=== PATIENT | female | born 1960 | race Caucasian/White ===

== ENCOUNTER 2017-06-09 11:40 | Emergency (ER) | payer MEDICAID, SELFPAY ==
[2017-06-09 11:44] VITALS: BP 159/67; PULSE 79; PULSE 81; RESP 17; RESP 18; TEMP 37.1; O2SAT 98; BMI 32.7
--- NOTE | 2017-06-09 11:59 | RAD_ITS ---
STUDY: X-RAY CHEST REASON FOR EXAM: Female, 57 years old. Chest pain following colonoscopy. Mitral valve prolapse. TECHNIQUE: AP and lateral views of the chest. COMPARISON: Comparison is made with prior study dated February 26, 2014. FINDINGS: EKG electrodes are seen. Scattered calcified granulomas. No acute abnormality is seen. There is no demonstrated pleural abnormality. Normal size heart. Normal mediastinum and yasemin. Normal visualized pulmonary arteries. There is atherosclerotic tortuosity of the aortic arch and descending thoracic aorta. There are diffuse degenerative changes of the visualized thoracic spine. Prior fusion of the cervical spine. There is no demonstrated abnormality of the visualized soft tissue structures of the upper abdomen. RAD/Chest PA and Lateral IMPRESSION: No acute abnormality is seen. Electronically Signed: Felipe Nguyen MD at 13:11 EST Tel [phone], Service support ,
--- NOTE | 2017-06-09 11:59 | EKG12_ITS ---
Test Reason : CP, POSTOP Blood Pressure : / mmHG Vent. Rate : 076 BPM Atrial Rate : 076 BPM P-R Int : 156 ms QRS Dur : 076 ms QT Int : 404 ms P-R-T Axes : 050 -19 027 degrees QTc Int : 454 ms Normal sinus rhythm Normal ECG When compared with ECG of 17-NOV-2016 14:27, No significant change was found Confirmed by NIKITA JIMENES, PATTI ([id number]), proposal editor LUCHO AU ([id number] on 06/11/2017 1:36:42 PM Referred By: BEAR Confirmed By:PATTI SHELTON MD
[2017-06-09 12:45] LABS: Absolute Lymphocyte Count 0.48 X10^3/ul (0.83-4.51); Absolute Neutrophil Count 5.9 X10^3/uL (2.0-7.7); Basophil# 0.01 X10^3/uL; Basophil% 0.1 % (0-1); Eosinophil# 0.11 X10^3/uL; Eosinophils% 1.6 % (0-5); Hematocrit 40.5 % (37-47); Hemoglobin 13.5 g/dl (12.0-15.0); Lymphocyte # 0.48 X10^3/ul (4.0); Mean Corp Hgb Conc 33.3 g/gl (32-36); Mean Corpuscular Hgb 28.8 pg (27.0-32.0); Mean Corpuscular Volume 86.5 fL (81-99); Mean Platelet Vol. 10.7 fl (6.2-12.0); Monocyte# 0.35 X10^3/uL; Monocyte% 5.1 % (0-10); Neutrophil # 5.85 X10^3/uL (2.7-7.7); Neutrophil % 86.1 % (47-70); Platelet Count 145 K/mm3 (150-450); RBC Distribution Width CV 12.7 % (11.6-14.6); RBC Distribution Width SD 39.3 fl (35.1-43.9); Red Blood Count 4.68 M/mm3 (4.2-5.4); White Blood Count 6.8 K/mm3 (4.4-11.0)
[2017-06-09 12:50] LABS: Anion Gap 9 (5-15); BUN 20 mg/dL (7-18); BUN/Creat Ratio 17.2 RATIO (10-20); Chloride 106 mmol/L (98-107); Creatinine, Serum 1.16 mg/dL (0.55-1.02); EST Glomerular Filtration Rate 51 mL/min (>60); Est Glom Filt Rate - Afr Amer 62 mL/min (>60); Estimated Creatinine Clearance 41.81 ml/min; Glucose 95 mg/dL (70-110); Sodium Level 139 mmol/L (136-145)
[2017-06-09 12:52] LABS: Differential Indicated SCAN CRITERIA MET; POSITIVE COUNT NO; POSITIVE DIFFERENTIAL YES; POSITIVE MORPHOLOGY NO
[2017-06-09 14:11] VITALS: BP 124/92; PULSE 94; RESP 22; O2SAT 98
--- NOTE | 2017-06-09 14:43 | ED.DCSUM_ITS ---
- ER Visit Summary Date of Service: 06/09/17 Chief Complaint: Chest pain History of Present Illness: The patient is a 57 F who was sent by surgery after an EGD/colonoscopy, she woke up with chest heaviness. She told surgery that she had been having this for about a month off and on, but she tells me along with family helping to provide history, she has been having these symptoms for over a year intermittently. She still presently has the discomfort. She states her memory is poor because of an old stroke, she also has some weakness in the left arm and leg but it is not so bad that she cannot walk. She walks without assistance. The EGD and colonoscopy was being performed because of abdominal pain that she gets when she eats, she does not have any of that right now. She does not have any known cardiac disease. She is a non-smoker. Per Dr. Cabrera, the only abnormal findings were gastritis. Physical Examination: Well-appearing in no distress, afebrile with unremarkable vital signs. Obese. Abdomen benign. Lungs clear to auscultation, chest nontender, heart regular without murmur. Equal bilateral radial pulses. No calf tenderness or pedal edema. Test Results: Labs show chronic renal insufficiency that is improved compared with her prior, negative troponin, her EKG is normal except for a leftward axis. There are no signs of abnormal repolarization. Her chest x-ray is normal. Emergency Department Course and Treatment: When I reevaluated the patient after her testing, she states she had a very large flatus, and her chest pain suddenly resolved. Therefore she was given no further medications and reassured , I do not think she is having acute coronary syndrome and is stable for discharge home close outpatient follow-up. She is amenable to that plan. Treatment Plan: Follow-up and continue medications as prescribed Disposition: Discharge home Impression: Chest pain, unspecified This note was generated with [employer] dictation software. It may contain incorrect words, spelling, and punctuation that were not noted in review of the chart prior to signing ED Disposition - Plan for ED Patient: Disposition: Home or Assisted Living Chief Complaint: Chest Pain Instructions: ED Chest Pain NonCardiac Referrals: Gopal Jensen [Primary Care Provider] - 3-5 Days
[2017-06-09 14:59] VITALS: BP 153/65; PULSE 78; RESP 18; O2SAT 97
--- NOTE | 2017-06-09 15:00 | ED.RN ---
THIS NURSE REVIEWED D/C INSTRUCTIONS WITH PT AND VISITOR. PT VERBALIZED UNDERSTANDING OF INSTRUCTIONS. 2 IV'S D/C. IV CATHETERS INTACT. PT TOLERATED WELL. PT DENIES FURTHER NEEDS OR QUESTIONS AT THIS TIME. PT AMBULATES FROM ROOM ON OWN WITHOUT ASSISTANCE FROM STAFF
== END 2017-06-09 15:01 | disposition home or self-care (01) ==
PROVIDERS: Emergency Provider Emergency Medicine; Family Provider Physician Assistant; PCP Physician Assistant
DX: R07.89 Other chest pain (principal); E66.9 Obesity, unspecified; N28.9 Disorder of kidney and ureter, unspecified; R29.898 Other symptoms and signs involving the musculoskeletal system; Z86.73 Personal history of transient ischemic attack (TIA), and cerebral infarction without residual deficits; K29.70 Gastritis, unspecified, without bleeding; Z79.899 Other long term (current) drug therapy; K31.7 Polyp of stomach and duodenum; K64.4 Residual hemorrhoidal skin tags; K64.8 Other hemorrhoids; K21.9 Gastro-esophageal reflux disease without esophagitis; J32.9 Chronic sinusitis, unspecified; I69.391 Dysphagia following cerebral infarction; I10 Essential (primary) hypertension; E78.00 Pure hypercholesterolemia, unspecified; G47.30 Sleep apnea, unspecified; F41.1 Generalized anxiety disorder; F41.0 Panic disorder [episodic paroxysmal anxiety]; F32.9 Major depressive disorder, single episode, unspecified; F43.12 Post-traumatic stress disorder, chronic; X58.XXXA Exposure to other specified factors, initial encounter; Y93.9 Activity, unspecified; Y92.9 Unspecified place or not applicable; Y99.9 Unspecified external cause status; Z78.0 Asymptomatic menopausal state; Z72.0 Tobacco use; Z96.641 Presence of right artificial hip joint; Z98.51 Tubal ligation status; Z87.891 Personal history of nicotine dependence; Z85.038 Personal history of other malignant neoplasm of large intestine
CPT/HCPCS: 43239; 45378; 71046; 80048; 84484; 85025; 88305; 88342; 93005; 99283; J7120; A4216